=== PATIENT | female | born 1995 | race Caucasian/White ===

== ENCOUNTER → 2019-08-20 09:51 | Outpatient (BNVA) | payer MEDICAID, SELFPAY | PROVIDERS: Family Provider Nurse Practitioner Family; PCP Nurse Practitioner Family; Visit Provider Emergency Medicine | DX: R10.9 Unspecified abdominal pain (principal); R73.03 Prediabetes; R31.9 Hematuria, unspecified; R11.0 Nausea | CPT/HCPCS: 80048; 81003; 85025; 87077; 87086; 87186 ==

== ENCOUNTER 2019-08-21 15:46 | Outpatient (CLI) | payer MEDICAID, SELFPAY ==
--- NOTE | 2019-08-21 15:55 | CT_ITS ---
WS: [id number] CT ABDOMEN PELVIS TECHNIQUE: Noncontrast CT of the abdomen and pelvis with coronal and sagittal reformatted images. CLINICAL INFORMATION: flank pain and hematuria COMPARISON: None. DLP: 734.[address] scans at [facility] use at least one of these dose optimization techniques: automat ed exposure control; mA and/or kV adjustment per patient size (includes targeted exams where dose is matched to clinical indication); or iterative reconstruction. FINDINGS: Noncontrast liver is normal. Cholecystectomy clips. Noncontrast liver is normal. Small splenule. A fe w prominent lymph nodes along the mesenteric root. Shotty periaortic and retroperitoneal lymph nodes. No hydronephrosis. No obstructing renal or ureteral calculi. No renal parenchymal calculi. Small amount of free fluid in the pelvis. No evidence of small or large bowel obstruction. Small righ t ovarian cyst/follicle measuring 5 mm. A few prominent inguinal lymph nodes likely reactive not path ologically enlarged. This lung bases are well aerated. CT/CT kidney stone 37330 IMPRESSION: 1. No obstructing renal or ureteral calculi. No hydronephrosis. 2. Cholecystectomy clips. 3. Small amount of free fluid in the pelvis. Small right ovarian follicle/cyst measuring 5 mm. 4. A few prominent lymph nodes along the mesenteric root and inguinal regions likely reactive not pathologically enlarged. Shotty periaortic lymph nodes.
== END 2019-08-21 15:47 | disposition home or self-care (01) ==
LOC: RAD 15:51
PROVIDERS: Family Provider Nurse Practitioner Family; PCP Nurse Practitioner Family; Visit Provider Emergency Medicine
DX: N83.201 Unspecified ovarian cyst, right side (principal); R10.9 Unspecified abdominal pain; R31.9 Hematuria, unspecified; Z90.49 Acquired absence of other specified parts of digestive tract
CPT/HCPCS: 74176

== ENCOUNTER → 2020-01-17 10:47 | Outpatient (BNVA) | payer MEDICAID, SELFPAY | PROVIDERS: Family Provider Nurse Practitioner Family; PCP Nurse Practitioner Family; Visit Provider Emergency Medicine | DX: R10.31 Right lower quadrant pain (principal); N30.01 Acute cystitis with hematuria | CPT/HCPCS: 81000 ==

== ENCOUNTER → 2020-02-22 09:32 | Outpatient (BNVA) | payer MEDICAID, SELFPAY | PROVIDERS: Family Provider Nurse Practitioner Family; PCP Nurse Practitioner Family; Visit Provider Nurse Practitioner Family | DX: Z11.59 Encounter for screening for other viral diseases (principal); Z03.818 Encounter for observation for suspected exposure to other biological agents ruled out | CPT/HCPCS: 87400; 87635 ==

== ENCOUNTER → 2020-06-07 16:17 | Outpatient (BNVA) | payer MEDICAID, SELFPAY | PROVIDERS: Family Provider Nurse Practitioner Family; PCP Nurse Practitioner Family; Visit Provider Emergency Medicine | DX: M25.541 Pain in joints of right hand (principal) | CPT/HCPCS: 73130 ==

== ENCOUNTER → 2020-08-18 12:10 | Outpatient (BNVA) | payer MEDICAID, SELFPAY | PROVIDERS: Family Provider Nurse Practitioner Family; PCP Nurse Practitioner Family; Visit Provider Emergency Medicine | DX: R10.9 Unspecified abdominal pain (principal); Z87.42 Personal history of other diseases of the female genital tract | CPT/HCPCS: 81000 ==

== ENCOUNTER 2020-08-26 10:34 | Outpatient (CLI) | payer MEDICAID, SELFPAY ==
--- NOTE | 2020-08-26 11:00 | US_ITS ---
WS: [id number] TRANSABDOMINAL PELVIC AND TRANSVAGINAL PELVIC ULTRASOUND HISTORY: R10.9 - Unspecified abdominal pain COMPARISON: None available. Uterus: 8.6 cm x 5.6 cm x 4.6 cm. Normal size anteverted uterus. No fibroid or mass. Endometrium: 1.4 cm. Normal homogeneity. Right ovary: 4.1 cm x 2.0 cm x 2.5 cm. There is a small cluster of cysts with thick martinez in the RIGH T ovary. May be a hemorrhagic cyst collapsing upon itself. There is a small amount of adjacent free f luid. Left ovary: 3.2 cm x 1.7 cm x 2.1 cm. Normal size and echogenicity. Physiologic free fluid in the cul-de-sac. US/US pelvic with transvaginal IMPRESSION: 1. Physiologic free fluid in the cul-de-sac. 2. Small cluster of thick wall cyst in the RIGHT ovary may be hemorrhagic cyst or involuting follicles.
== END 2020-08-26 10:35 | disposition home or self-care (01) ==
LOC: US 10:38
PROVIDERS: PCP Nurse Practitioner Family; Visit Provider Emergency Medicine
DX: R10.9 Unspecified abdominal pain (principal); N83.201 Unspecified ovarian cyst, right side
CPT/HCPCS: 76830; 76856

== ENCOUNTER → 2020-10-17 15:01 | Outpatient (BNVA) | payer MEDICAID, SELFPAY | PROVIDERS: PCP Nurse Practitioner Family; Visit Provider Obstetrics & Gynecology | DX: R10.9 Unspecified abdominal pain (principal); Z87.42 Personal history of other diseases of the female genital tract; N83.202 Unspecified ovarian cyst, left side | CPT/HCPCS: 76830 ==

== ENCOUNTER → 2021-03-22 16:16 | Outpatient (BNVA) | payer MEDICAID, SELFPAY | PROVIDERS: PCP Nurse Practitioner Family; Visit Provider Emergency Medicine | DX: M79.672 Pain in left foot (principal); M25.579 Pain in unspecified ankle and joints of unspecified foot | CPT/HCPCS: 73610; 73630 ==

== ENCOUNTER → 2021-04-20 08:27 | Outpatient (BNVA) | payer OTHER, SELFPAY | PROVIDERS: PCP Nurse Practitioner Family; Visit Provider Psychiatry & Neurology Psychiatry | DX: F43.12 Post-traumatic stress disorder, chronic (principal); F33.2 Major depressive disorder, recurrent severe without psychotic features; F41.1 Generalized anxiety disorder | CPT/HCPCS: 99204 ==

== ENCOUNTER → 2021-05-01 12:42 | Outpatient (BNVA) | payer OTHER, SELFPAY | PROVIDERS: PCP Nurse Practitioner Family; Visit Provider Counselor Professional | DX: F33.2 Major depressive disorder, recurrent severe without psychotic features (principal); F41.1 Generalized anxiety disorder; F43.8 Other reactions to severe stress | CPT/HCPCS: 90832 ==

== ENCOUNTER → 2021-05-08 13:48 | Outpatient (BNVA) | payer OTHER, SELFPAY | PROVIDERS: PCP Nurse Practitioner Family; Visit Provider Counselor Professional | DX: F33.2 Major depressive disorder, recurrent severe without psychotic features (principal); F41.1 Generalized anxiety disorder; F43.8 Other reactions to severe stress | CPT/HCPCS: 90834 ==

== ENCOUNTER → 2021-05-17 12:46 | Outpatient (BNVA) | payer OTHER, MEDICAID, SELFPAY | PROVIDERS: PCP Nurse Practitioner Family; Visit Provider Counselor Professional | DX: F33.2 Major depressive disorder, recurrent severe without psychotic features (principal); F41.1 Generalized anxiety disorder; F43.8 Other reactions to severe stress | CPT/HCPCS: 90834 ==

== ENCOUNTER → 2021-06-05 12:35 | Outpatient (BNVA) | payer OTHER, MEDICAID, SELFPAY | PROVIDERS: PCP Nurse Practitioner Family; Visit Provider Emergency Medicine | DX: Z20.822 Contact with and (suspected) exposure to COVID-19 (principal) | CPT/HCPCS: 87635 ==

== ENCOUNTER → 2021-06-21 07:56 | Outpatient (BNVA) | payer OTHER, MEDICAID, SELFPAY | PROVIDERS: PCP Nurse Practitioner Family; Visit Provider Psychiatry & Neurology Psychiatry | DX: F41.1 Generalized anxiety disorder (principal) | CPT/HCPCS: 99214 ==

== ENCOUNTER 2021-09-14 10:32 | Emergency (ER) | payer MEDICAID, SELFPAY ==
[2021-09-14 11:29] VITALS: BP 134/79; PULSE 117; RESP 20; TEMP 36.8; O2SAT 97; BMI 26.2
--- NOTE | 2021-09-14 11:50 | ED_ITS ---
HPI - Female Genitourinary General: Chief complaint: Urogenital-Female Stated complaint: Left side pain Time Seen by Provider: 09/14/21 11:36 History of Present Illness: Patient is a 26-year-old female who comes to the ED with left-sided flank/abdominal pain. Patient says symptoms started approximately 4 days ago. The pain is been constant ever since and not improving with any Tylenol or Motrin. She has never had pain like this before. She went in and saw primary care physician this morning and they told her to come here to the ED for further evaluation of left-sided abdominal pain and possible kidney stone. Primary care physician gave patient a shot of Toradol and Zofran before she came here to the ED. nausea has improved since getting Zofran earlier today. She rates her pain currently an 8 out of 10. Denies any chance of being and her last menstrual period was on August 25. She has had some nausea but denies any emesis. Denies dysuria, hematuria, diarrhea or constipation. Associated symptoms: Reports nausea; Deny abdominal pain or headache(s) Date of Last Menstrual Period: 08/03/19 Review of Systems Const: Denies: fever(s), chills or fatigue Eyes: Denies: change in vision or eye discomfort ENMT: Denies: throat pain, odynophagia, nasal discharge or nasal congestion Card: Denies: chest pain, palpitations, edema, swelling of feet/ankles, dyspnea on exertion or orthopnea Resp: Denies: dyspnea, productive cough or non-productive cough GI: Reports: nausea; Denies: abdominal pain, vomiting, diarrhea, constipation or hematochezia : Reports: flank pain (left); Denies: dysuria or hematuria Musc: Denies: neck pain, back pain or extremity swelling Skin/Breast: Denies: rash or new lesions Neuro: Denies: headache(s), numbness in extremities or weakness in extremities PFSH ED PFSH: Medical History Psychiatric care Right ovarian cyst Family History Sister Ovarian cyst Sister Ovarian cyst Mother Ovarian cyst Denies family history of Colon cancer Diabetes Clotting disorder Heart disease Hyperlipidemia Breast cancer Anesthesia complication Bleeding disorder Hypertension Uterine cancer Thyroid condition Stroke Social History Smoking and tobacco status: never smoked Second hand smoke exposure: No Alcohol intake: never Current gender identity: Female Female Reproductive History: Date of last menstrual period: 08/03/19 Spontaneous abortions: No Physical Exam Const: COMMON NORMALS: patient oriented x3 and alert GENERAL APPEARANCE: cooperative HENMT: COMMON NORMALS: normocephalic HEAD & SCALP: normocephalic MOUTH: Normal oral and palatal mucosa present THROAT: posterior oropharynx normal and uvula midline Eye: COMMON NORMALS: Equal, round and reactive pupils present and conjunctivae normal CONJUNCTIVA: Yes conjunctivae normal PUPIL: Yes Equal, round and reactive pupils present Neck/C-Spine: COMMON NORMALS: supple GENERAL: Yes normal visual inspection Resp: COMMON NORMALS: normal respiratory effort, No retractions, No use of accessory muscles and clear to auscultation bilaterally AUSCULTATION: clear to auscultation bilaterally Cardio: COMMON NORMALS: regular rate, regular rhythm, S1 normal heart sound present, S2 normal heart sound present, No gallops present (Cardio), No clicks present (Cardio), No murmurs present (Cardio) and Peripheral pulses 2+ throughout RATE: regular rate RHYTHM: regular rhythm HEART SOUNDS: S1 normal heart sound present and S2 normal heart sound present PERIPHERAL PULSES: Peripheral pulses 2+ throughout GI: COMMON NORMALS: Normal to inspection, nondistended, normoactive bowel sounds present, Soft to palpation and no masses PALPATION: Yes Soft to palpation and Yes Tenderness to palpation present (GI) Details: LLQ : BLADDER/KIDNEY EXAM: Yes CVA tenderness on the left Back/Pelvis: GENERAL BACK: Yes CVA tenderness Extremity: COMMON NORMALS: normal to inspection Neuro: COMMON NORMALS: patient oriented x3 SENSORIUM/ORIENTATION: Yes alert GAIT: Yes Normal gait present Skin: GENERAL SKIN EXAM: dry skin Course Vital Signs: Vital signs: Vital Signs Temperature 98.2 F 09/14/21 11:29 Pulse Rate 117 H 09/14/21 11:29 Respiratory Rate 20 H 09/14/21 16:16 Blood Pressure 134/79 09/14/21 11:29 Pulse Oximetry 96 09/14/21 16:16 [facility] - Female Medical Decision Making Patient is a 26-year-old female comes to the ED with left flank pain. Symptoms have been going on for the past 4 days. Patient was seen by PCP earlier this morning and sent over here for further evaluation of left flank pain for possible kidney stone. Patient denies any dysuria or hematuria. She has nausea and rates the pain currently an 8 out of 10. Vitals stable. Patient appears nontoxic in no acute distress. She has some left CVA tenderness along with left lower quadrant abdominal tenderness. White blood cell count 12.4 but the rest of CBC and CMP were unremarkable. UA showed a little bit of red blood white blood cells and some bacteria. CT of abdomen pelvis showed no renal obstructions or calcifications. There was some mild perinephric stranding around the lower pole of left kidney which could indicate advancing UTI. Vicenta ent was given IV morphine and Rocephin here in the ED. Patient diagnosed with a UTI and discharged home with a prescription for Cipro, Zofran and Celebrex. She was told to follow-up with her PCP in 3 to 5 days for reevaluation. Return to ED precautions given. Patient understood and agreed with plan. Lab Data I reviewed the patient's lab results. : 09/14/21 12:20 09/14/21 12:20 Radiology Impressions Abdomen/Pelvis CT 09/14/21 13:07 IMPRESSION: 1. No renal obstruction or calcification identified. 2. New mild perinephric stranding around the lower pole the LEFT kidney. Correlate for possible urinary tract infection. 3. Prior cholecystectomy. 4. No significant amount of free fluid. 5. Normal appendix. Laboratory Results WBC 12.4 10^3/uL (4.0-10.0) H 09/14/21 12:20 RBC 4.25 10^6/uL (4.1-5.3) 09/14/21 12:20 Hgb 12.5 g/dL (11.5-15.3) 09/14/21 12:20 Hct 38.1 % (37.0-47.0) 09/14/21 12:20 MCV 89.6 fl (81-99) 09/14/21 12:20 MCH 29.4 pg (28.0-34.0) 09/14/21 12:20 MCHC 32.8 g/dL (30.0-36.0) 09/14/21 12:20 RDW 11.9 % (12.1-15.1) L 09/14/21 12:20 Plt Count 316 10^3/cmm (130-400) 09/14/21 12:20 MPV 9.3 fL (7.4-10.4) 09/14/21 12:20 Neut % (Auto) 78.3 % 09/14/21 12:20 Lymph % (Auto) 11.6 % 09/14/21 12:20 [place] % (Auto) 8.8 % 09/14/21 12:20 Eos % (Auto) 0.2 % 09/14/21 12:20 Baso % (Auto) 0.6 % 09/14/21 12:20 Neut # (Auto) 9.71 10^3/uL (1.8-7.7) H 09/14/21 12:20 Lymph # (Auto) 1.4 10^3/uL (0.8-4.8) 09/14/21 12:20 [place] # (Auto) 1.1 10^3/uL (0.2-0.9) H 09/14/21 12:20 Eos # (Auto) 0.0 10^3/uL (0.0-0.8) 09/14/21 12:20 Baso # (Auto) 0.1 10^3/uL (0.0-0.1) 09/14/21 12:20 Nucleated RBC % (auto) 0 % 09/14/21 12:20 Nucleated RBCs # 0.0 /100WBC 09/14/21 12:20 Sodium 136 mmol/L (136-145) 09/14/21 12:20 Potassium 4.5 mmol/L (3.5-5.1) 09/14/21 12:20 Chloride 101 mmol/L (98-107) 09/14/21 12:20 Carbon Dioxide 23 mmol/L (22-29) 09/14/21 12:20 Anion Gap 16.5 (5-19) 09/14/21 12:20 BUN 6 mg/dL (6-20) 09/14/21 12:20 Creatinine 0.6 mg/dL (0.5-0.9) 09/14/21 12:20 GFR Calculation 122.8 mL/min (90-130) 09/14/21 12:20 Glucose 96 mg/dL (65-115) 09/14/21 12:20 Calculated Osmolality 279 mOsm/kg (285-295) L 09/14/21 12:20 Calcium 8.8 mg/dL (8.5-10.5) 09/14/21 12:20 Total Bilirubin 0.4 mg/dL (0.15-1.2) 09/14/21 12:20 AST 18 U/L (0-32) 09/14/21 12:20 ALT 12 U/L (0-33) 09/14/21 12:20 Alkaline Phosphatase 102 IU/L (35-105) 09/14/21 12:20 Total Protein 7.8 g/dL (6.6-8.7) 09/14/21 12:20 Albumin 4.6 g/dL (3.5-5.2) 09/14/21 12:20 Globulin 3.2 g/dL (1.3-4.6) 09/14/21 12:20 Lipase 14 U/L (13-60) 09/14/21 12:20 HCG, Qual Negative (Negative) 09/14/21 12:20 Urine Color Yellow (Yellow) 09/14/21 11:35 Urine Appearance Hazy (CLEAR) A 09/14/21 11:35 Urine pH 5 (5-7) 09/14/21 11:35 Ur Specific [place] 1.010 (1.005-1.030) 09/14/21 11:35 Urine Protein Neg (Negative) 09/14/21 11:35 Urine Glucose (UA) Norm (Normal) 09/14/21 11:35 Urine Ketones Negative (Negative) 09/14/21 11:35 Urine Blood 2+ (Negative) H 09/14/21 11:35 Urine Nitrate Negative (Negative) 09/14/21 11:35 Urine Bilirubin Neg (Negative) 09/14/21 11:35 Urine Urobilinogen Neg mg/dL (Negative) 09/14/21 11:35 Ur Leukocyte Esterase Trace (Negative) H 09/14/21 11:35 Urine RBC 0-4 /hpf (0-2) H 09/14/21 11:35 Urine WBC 0-4 /hpf (0-5) H 09/14/21 11:35 Ur Squamous Epith Cells 5-10 /hpf (0-5) H 09/14/21 11:35 Amorphous Sediment Not Reportable 09/14/21 11:35 Urine Bacteria 2+ /hpf (NONE) H 09/14/21 11:35 Discharge Plan Discharge Patient Disposition: Home Clinical Impression: UTI (urinary tract infection) Qualifiers: Urinary tract infection type: site unspecified Hematuria presence: with hematuria Qualified Code(s): N39.0 - Urinary tract infection, site not specified Condition: Stable Prescriptions: New Zofran 4 mg tablet 4 mg PO Q8H PRN (Reason: nausea and vomiting) Qty: 20 0RF ciprofloxacin HCl 500 mg tablet 500 mg PO BID 7 Days Qty: 14 0RF Celebrex 100 mg capsule 100 mg PO BID PRN (Reason: pain) Qty: 20 0RF Discharge Orders: Discharge ED (Routine); Ordered 09/14/21 Ordered By: Ari Coronel Referrals: Waqar Villareal FNP [Primary Care Provider] - Discharge Diet: Regular Discharge Activity: Increase activity as tolerated Patient Instructions: Urinary Tract Infection in Women (DC) Activity Restrictions/Additional Instructions: Follow-up with medical provider as directed in 5 to 7 days for reevaluation. Take medications as prescribed. Make sure you drink plenty of fluids and stay hydrated. Return to the ER or your medical provider if condition worsens. Please read and understand discharge instructions. Thank you for choosing [facility] for your healthcare needs today. Please realize this is an emergency room and that we are providing you with a medical screening exam and this may not be complete and all inclusive of all the testing and or work up that you may need to determine your ailment or severity of your illness. It is very important that you follow up as instructed or that you return to the Emergency Department should you have concerns or if your condition changes or worsens in any way. Coding Level of Care Code ED [employer] for Nneka Deng Exam Comprehensive
[2021-09-14 12:34] VITALS: RESP 16
[2021-09-14] MEDS: morphine 4 mg/mL SDV 1 mL IVP ×2 (12:34→16:16)
[2021-09-14 12:37] LABS: Basophils # 0.1 10^3/uL (0.0-0.1); Basophils % 0.6 %; Eosinophils % 0.2 %; Hematocrit 38.1 % (37.0-47.0); Hemoglobin 12.5 g/dL (11.5-15.3); Lymphocytes # 1.4 10^3/uL (0.8-4.8); Lymphocytes % 11.6 %; Mean Corpuscular HGB Conc 32.8 g/dL (30.0-36.0); Mean Corpuscular Hemoglobin 29.4 pg (28.0-34.0); Mean Corpuscular Volume 89.6 fl (81-99); Mean Platelet Volume 9.3 fL (7.4-10.4); Monocytes # 1.1 10^3/uL (0.2-0.9); Monocytes % 8.8 %; Neutrophils # 9.71 10^3/uL (1.8-7.7); Neutrophils % 78.3 %; Nucleated Red Blood Cells % 0 %; Platelet Count 316 10^3/cmm (130-400); Red Blood Count 4.25 10^6/uL (4.1-5.3); Red Cell Distribution Width 11.9 % (12.1-15.1); White Blood Count 12.4 10^3/uL (4.0-10.0)
[2021-09-14 12:52] LABS: Add Urine Microscopic? YES; Bilirubin Urine Neg (Negative); Blood Urine 2+ (Negative); Glucose Urine UA Norm (Normal); Ketones Urine Negative (Negative); Leukocyte Esterase Urine Trace (Negative); Nitrate Urine Negative (Negative); Protein Urine Neg (Negative); Urine Appearance Hazy (CLEAR); Urine Color Yellow (Yellow); Urobilinogen Urine Neg (Negative); pH Urine 5 (5-7)
[2021-09-14 12:53] LABS: Add Urine Culture? Yes; Bacteria Urine 2+ /hpf; RBC Urine 0-4 /hpf (0-2); WBC Urine 0-4 /hpf (0-5)
[2021-09-14 12:57] LABS: HCG, Serum Qual Negative (Negative)
[2021-09-14 13:03] LABS: Alanine Aminotransferase 12 U/L (0-33); Albumin Level 4.6 g/dL (3.5-5.2); Alkaline Phosphatase 102 IU/L (35-105); Anion Gap 16.5 (5-19); Aspartate Amino Transferase 18 U/L (0-32); Blood Urea Nitrogen 6 mg/dL (6-20); Calcium 8.8 mg/dL (8.5-10.5); Carbon Dioxide 23 mmol/L (22-29); Chloride 101 mmol/L (98-107); Globulin 3.2 g/dL (1.3-4.6); Glomerular Filtration Rate 122.8 mL/min (90-130); Glucose 96 mg/dL (65-115); Lipase 14 U/L (13-60); Osmolality Calculated 279 mOsm/kg (285-295); Potassium 4.5 mmol/L (3.5-5.1); Sodium 136 mmol/L (136-145); Total Bilirubin 0.4 mg/dL (0.15-1.2); Total Protein 7.8 g/dL (6.6-8.7)
--- NOTE | 2021-09-14 13:07 | CT_ITS ---
WS: [id number] CT ABDOMEN AND PELVIS NONCONTRAST HISTORY: Left flank pain TECHNIQUE: Imaging performed through the abdomen and pelvis. Coronal and sagittal reformats are submi tted. All CT scans at [facility] use at least one of these dose optimization techniques: auto mated exposure control; mA and/or kV adjustment per patient size (includes targeted exams where dose is matched to clinical indication); or iterative reconstruction. DLP: 836.23 mGy.cm COMPARISON: 08/21/2019 Lower thorax: Lung bases are clear. Visualized heart is normal. No hiatal hernia. Liver: Normal size liver. No mass or bile duct dilatation. Gallbladder: Prior cholecystectomy. Pancreas: Normal size and attenuation. Normal pancreatic duct. No pancreatitis or mass. Spleen: Normal. Adrenal glands: Normal. No mass. Right kidney: Normal size kidney with no mass or hydronephrosis. Left kidney: No renal obstruction. There is increased perinephric stranding around the LEFT kidney gr eatest involving the lower pole. New since 08/21/2019. Aorta: Normal abdominal aorta, no aneurysm or atherosclerosis. There are small shoddy retroperitoneal lymph nodes. Slightly greater along the LEFT aorta. No free ai r. Tiny physiologic amount of free fluid in the pelvis. GI tract: Normal appendix. No GI tract obstruction or inflammation. Abdominal wall: Negative. No hernia. Pelvis: Mildly enlarged anteverted uterus. 5 mm area of decreased attenuation in the RIGHT lateral pe lvis. This may be a small ovarian cysts. Less likely a small fibroid. LEFT ovarian follicle measures 2.2 x 2.0 cm. Tiny amount of free fluid in the cul-de-sac. Osseous structures: Unremarkable. CT/CT kidney stone [id number] IMPRESSION: 1. No renal obstruction or calcification identified. 2. New mild perinephric stranding around the lower pole the LEFT kidney. Corre late for possible urinary tract infection. 3. Prior cholecystectomy. 4. No significant amount of free fluid. 5. Normal appendix.
[2021-09-14] MEDS: cefTRIAXone 1,000 MG in sodium chloride 0.9% (plus) 50 ML 100 MG IV (15:43)
[2021-09-14 16:16] VITALS: RESP 20; O2SAT 96
== END 2021-09-14 16:52 | disposition home or self-care (01) ==
PROVIDERS: Emergency Provider Physician Assistant; PCP Nurse Practitioner Family
DX: N39.0 Urinary tract infection, site not specified (principal)
CPT/HCPCS: 74176; 80053; 81000; 81001; 83690; 84703; 85025; 87077; 87086; 87186; 96365; 96375; 96376; 99284; J0696; J2270

== ENCOUNTER → 2022-03-12 11:19 | Outpatient (BNVA) | payer MEDICAID, SELFPAY | PROVIDERS: Visit Provider Emergency Medicine | DX: R69 Illness, unspecified (principal); Z20.822 Contact with and (suspected) exposure to COVID-19 | CPT/HCPCS: 87426 ==

== ENCOUNTER → 2023-01-01 10:01 | Outpatient (BNVA) | payer MEDICAID, SELFPAY | PROVIDERS: Visit Provider Emergency Medicine | DX: J02.9 Acute pharyngitis, unspecified (principal); R50.9 Fever, unspecified; R05.9 Cough, unspecified; J06.9 Acute upper respiratory infection, unspecified | CPT/HCPCS: 87400; 87426 ==

== ENCOUNTER → 2023-09-27 09:57 | Outpatient (BNVA) | payer MEDICAID, SELFPAY | PROVIDERS: Visit Provider Emergency Medicine | DX: M25.571 Pain in right ankle and joints of right foot (principal); M79.671 Pain in right foot; M79.604 Pain in right leg; M25.471 Effusion, right ankle | CPT/HCPCS: 73590; 73610; 73630 ==

== ENCOUNTER → 2024-07-10 09:26 | Outpatient (BNVA) | payer SELFPAY | PROVIDERS: Visit Provider Nurse Practitioner | DX: M54.9 Dorsalgia, unspecified (principal) | CPT/HCPCS: 81000; 87086 ==

== ENCOUNTER → 2024-07-15 14:07 | Outpatient (BNVA) | payer MEDICAID, SELFPAY | PROVIDERS: Referring Provider Nurse Practitioner; Visit Provider Nurse Practitioner | DX: M47.894 Other spondylosis, thoracic region (principal) | CPT/HCPCS: 72072 ==